=== PATIENT | male | born 1940 | race Asian ===

== ENCOUNTER 2017-06-10 17:40 | Emergency (ER) | payer MEDICARE, MEDICAID ==
[~2017-06-10] VITALS: Ht 175.3 cm; Wt 70.4 kg
[~2017-06-10 17:40] MED LIST: METO25TA35 PO
[2017-06-10 19:19] VITALS: BP 136/74
== END 2017-06-10 19:24 | disposition home or self-care (01) ==
LOC: ED 18:22
DX: I10 Essential (primary) hypertension (principal); Z88.5 Allergy status to narcotic agent
CPT/HCPCS: 93005; 99283